=== PATIENT | male | born 1940 | race Caucasian/White ===

== ENCOUNTER 2025-06-16 12:15 | Emergency (ER) | payer OTHER ==
[~2025-06-16] VITALS: Ht 188 cm; Wt 90.2 kg
--- NOTE | 2025-06-16 12:37 | ED.PDOC ---
GI ASSESSMENT HPI Comments This is a 85 year old male presenting to the ED with chief complaint of abdominal pain. Patient reports that he has been experiencing 6/10 periumbilical abdominal burning for the past 3 weeks. Patient relays that his pain is constant and he has been experiencing associated headache and constipation, but is managed by laxative use. Patient states he visited [facility] 2 days ago where blood work and urine tests were performed, all coming back normal. Patient notes he was advised if his symptoms continued, to come into the ED for abdominal CT, which is what he is here for today. Patient denies any nausea, vomiting, diarrhea, fever, chills, hematemesis, or melena. Chief Complaint: Abdominal Pain Time Seen by MD: 12:35 Primary Care Provider: AMADOR Bah Notes: Nurses Notes, Medications, Allergies Allergies: Coded Allergies: NO KNOWN ALLERGIES (Unverified , 08/10/18) Home Meds Active Scripts Ciprofloxacin Hcl (Cipro) 500 Mg Tab, 1 TAB PO BID for 10 Days, #20 TAB Prov:FLORA RECINOS MD 06/16/25 Omeprazole Magnesium (Omeprazole) 20 Mg Tab, 20 MG PO DAILY, #30 TAB Prov:FLORA RECINOS MD 06/16/25 Dicyclomine Hcl (BENTYL CAPSULE) 10 Mg Cp, 2 CAP PO QID PRN, #30 CAP 11 Refills prn abdominal pain Prov:FLORA RECINOS MD 06/16/25 Discontinued Scripts Cephalexin Monohydrate (Cephalexin) 500 Mg Cap, 1 CAP PO QID for 10 Days, #40 CAP Prov:FLORA RECINOS MD 06/16/25 Information Source: Patient, Spouse Mode of Arrival: Ambulatory Timing: Weeks Duration: Since onset Prehospital treatment: None Quality: Burning Vomitus: None Stool: Impaction Severity: Moderate Recent: None Recent Hx of: None Pain Location: Periumbilical Modifying Factors: Nothing Associated sign and symptoms: Abdominal Pain Past Medical History Past Medical History (Other): Chronic back pain Surgical History: Denies all surgeries Family History Family History: Reviewed,noncontributory to illness Social History Smoker: Non-Smoker Alcohol: Denies ETOH Use Drugs: Denies Drug Use Lives In: Home Constitutional: denies: chills, diaphoresis, fatigue, fever, malaise, sweats, weakness, others EENTM: denies: blurred vision, double vision, ear bleeding, ear discharge, ear drainage, ear pain, ear ringing, eye pain, eye redness, hearing loss, mouth seymour n, mouth swelling, nasal discharge, nose bleeding, nose congestion, nose pain, photophobia, tearing, throat pain, throat swelling, voice changes, others Respiratory: denies: cough, hemoptysis, orthopnea, SOB at rest, shortness of breath, SOB with excertion, stridor, wheezing, others Cardiovascular: denies: chest pain, dizzy spells, diaphoresis, Dyspnea on exertion, edema, irregular heart beat, left arm pain, lightheadedness, palpitations, PND, syncope, others Gastrointestinal: reports: abdominal pain, constipated; denies: abdomen distended, blood streaked bowels, diarrhea, dysphagia, difficulty swallowing, hematemesis, melena, nausea, poor appetite, poor fluid intake, rectal bleeding, rectal pain, vomiting, others Genitourinary: denies: burning, dysuria, flank pain, frequency, hematuria, incontinence, penile discharge, penile sore, pain, testicle pain, testicle swelling, urgency, others Neurological: denies: dizziness, fainting, headache, left sided numbness, left sided weakness, numbness, paresthesia, pre-existing deficit, right sided numbness, right sided weakness, seizure, speech problems, tingling, tremors, weakness, others Musculoskeletal: denies: back pain, gout, joint pain, joint swelling, muscle pain, muscle stiffness, neck pain, others Integumetry: denies: bruises, change in color, change in hair/nails, dryness, laceration, lesions, lumps, rash, wounds, others Allergic/Immunocompromised: denies: Difficulty Healing, Frequent Infections, Hives, Itching, others Hematologic/Lymphatic: denies: anemia, blood clots, easy bleeding, easy bruising, swollen glands, others Endocrine: denies: excessive hunger, excessive sweating, excessive thirst, excessive urination, flushing, intolerance to cold, intolerance to heat, unexplained weight gain, unexplained weight loss, others Psychiatric: denies: anxiety, bipolar disorder, depression, hopeless, panic disorder, schizophrenia, sleepless, suicidal, others All Other Systems: Reviewed and Negative Physical Exam General Appearance: No Apparent Distress HEENT: Other (Pupils and face symmetric. Moist mucous membranes.) Neck: Full Range of Motion, Normal Inspection Respiratory: Lungs Clear, No Accessory Muscle Use, No Respiratory Distress, Normal Breath Sounds Cardiovascular: No Edema, No JVD, Regular Rate/Rhythm Breast Exam: Deferred Gastrointestinal: Soft, Tenderness (Supraumbilical tenderness to deep palpation. Nontender to percussion. No rebound or guarding.) Genitalia: Deferred Pelvic: Deferred Rectal: Deferred Extremities: Normal inspection, Normal range of motion, Non-tender, No pedal edema Neurologic: Alert (Oriented x4), Normal Affect, Normal Mood, Other (Ambulatory) Cerebellar Function: NOT DONE Reflexes: NOT DONE Skin: Dry, Normal Color, Warm Lymphatic: NOT DONE Was a procedure done? Was a procedure done?: No GI differential Dx Differential Diagnosis: Constipation, Diverticular disease, Gastritis/PUD, Gastroenteritis, Inflammatory BD, Ischemic Bowel, UTI, Dehydration, Electrolyte Imbalance, Bacterial, Viral, Impaction, Stress Ulcer X-Ray, Labs, Meds, VS Vital Signs Date Time Temp Pulse Resp B/P (MAP) Pulse Ox O2 Delivery O2 Flow Rate FiO2 06/16/25 15:42 Room Air* 0 21 06/16/25 15:41 97.7 90 18 161/104 (123) 95 97.7 06/16/25 15:34 90 18 161/104 06/16/25 12:16 98.7 99 18 157/91 96 98.7 Lab Test 06/16/25 14:59 06/16/25 13:47 06/16/25 12:50 06/16/25 12:33 Range/Units Lactic Acid Level 1.1 2.1 *H 0.4-2.0 mmol/L Troponin I High Sensitivity 10 14 </=54 ng/L White Blood Count 8.3 4.4-10.8 10^3/uL Red Blood Count 4.98 4.5-5.90 10^6/uL Hemoglobin 14.8 13.5-17.5 g/dL Hematocrit 44.0 41.0-53.0 % Mean Corpuscular Volume 88.2 80.0-100.0 fL Mean Corpuscular Hemoglobin 29.7 28.0-32.0 pg Mean Corpuscular Hemoglobin Concent 33.7 32.0-36.0 g/dL Red Cell Distribution Width 14.4 H 11.8-14.3 % Platelet Count 245 140-450 10^3/uL Mean Platelet Volume 8.6 6.9-10.8 fL Neutrophils (%) (Auto) 81.6 H 37.0-80.0 % Lymphocytes (%) (Auto) 9.1 L 10.0-50.0 % Monocytes (%) (Auto) 8.4 0.0-12.0 % Eosinophils (%) (Auto) 0.5 0.0-7.0 % Basophils (%) (Auto) 0.4 0.0-2.0 % Neutrophils # (Auto) 6.8 1.6-8.6 10 ^3/uL Lymphocytes # (Auto) 0.8 0.4-5.4 10 ^3/uL Monocytes # (Auto) 0.7 0-1.3 10 ^3/uL Eosinophils # (Auto) 0 0-0.8 10 ^3/uL Basophils # (Auto) 0 0-0.2 10 ^3/uL Nucleated Red Blood Cells 0.2 % Platelet Estimate Adequa Large Platelets Few Sodium Level 140 136-145 mmol/L Potassium Level 4.1 3.5-5.1 mmol/L Chloride Level 105 98-107 mmol/L Carbon Dioxide Level 24 20-31 mmol/L Anion Gap 11 5-15 Blood Urea Nitrogen 10 9-23 mg/dL Creatinine 1.03 0.700-1.30 mg/dL Glomerular Filtration Rate Calc 71 >90 mL/min BUN/Creatinine Ratio 9.7 L 10.0-20.0 Serum Glucose 108 H 74-106 mg/dL Calcium Level 9.6 8.7-10.4 mg/dL Total Bilirubin 0.7 0.2-1.0 mg/dL Aspartate Amino Transferase (AST) 26 13-40 U/L Alanine Aminotransferase (ALT) 15 7-40 U/L Alkaline Phosphatase 94 46-116 U/L Total Protein 7.9 5.7-8.2 g/dL Albumin 4.5 3.2-4.8 g/dL Lipase 30 12-53 U/L Urine Color Yellow Yellow Urine Clarity Clear Clear Urine pH 6.0 5.0-9.0 Urine Specific Gerber 1.017 1.001-1.035 Urine Protein Trace H Negative Urine Ketones Negative Negative Urine Blood Negative Negative /uL Urine Nitrite Negative Negative Urine Bilirubin Negative Negative Urine Urobilinogen Normal Negative mg/dL Urine Leukocyte Esterase 1+ Negative /uL Urine RBC 1 0 - 3 /hpf Urine Microscopic WBC 6 H 0-3 /HPF Urine Squamous Epithelial Cells Few <5 /hpf Urine Calcium Oxalate Crystals Few None Seen Urine Amorphous Crystals Few None Seen /hpf Urine Bacteria Few H None Seen /hpf Urine Hyaline Casts Few 0 - 2 /lpf Urine Mucus Few None Seen Urine Glucose Normal Normal mg/dL Current Medications Medications (Trade) Dose Ordered Sig/Jeremías Route Start Time Stop Time Status Last Admin Morphine Sulfate 4 mg ONCE ONCE IV 06/16/25 12:45 06/16/25 12:46 DC 06/16/25 15:34 Ondansetron HCl (Zofran) 4 mg ONCE ONCE IV 06/16/25 12:45 06/16/25 12:46 DC 06/16/25 15:34 Pantoprazole Sodium (Protonix) 40 mg ONCE ONCE IV 06/16/25 12:45 06/16/25 12:46 DC 06/16/25 15:34 Sodium Chloride 1,000 ml @ 1,000 mls/hr Q1H ONCE IV 06/16/25 12:45 06/16/25 13:44 DC 06/16/25 15:34 Ceftriaxone Sodium 50 ml @ 100 mls/hr ONCE ONCE IV 06/16/25 15:00 06/16/25 15:29 DC 06/16/25 15:35 PROCEDURE(s): ABPL - CT AB PEL WO CON-NO ORAL OR IV REASON: mid abdominal pain ORDER NUMBER(s): [id number], ACCESSION NUMBER(s): [id number] Exam: CT CT AB PEL WO CON-NO ORAL OR IV History: mid abdominal pain Comparison Study: None TECHNIQUE: Multidetector CT of the abdomen AND PELVIS without IV contrast. Axial, coronal and sagittal multiplanar reformats were obtained from the axial data set by the technologist. Radiation Dose Information: CT Dose: CTDI volume is 20.24 mGy. Dose-length product is 1181.24 mGy*cm FINDINGS: Bibasilar atelectasis/scarring. Partially visualized heart is unremarkable. Liver, spleen, gallbladder, pancreas and adrenal glands arae unremarkable. Ydjo-hq-fnqtmwra nonspecific bilateral perinephric fat stranding. Slight inferior position of the right kidney with the perinephric fat stranding extending into a large fat containing inguinal hernia. Bilateral multiple parapelvic cysts, largest on the right measuring up to 3.8 cm and largest on the left measuring up to 5.2 cm. Punctate nonobstructing left renal calculi versus vascular calcification. Bilateral ureters and urinary bladder unremarkable. Prostate measures 3.4 x 4.9 x 4.3 cm with foci of calcification. Stomach is unremarkable. Small bowel loops unremarkable. Appendix is normal in size with a 2 mm appendicolith distally. Moderate amount of fecal material within the colon. Descending colon and Sigmoid diverticulosis mild rectal wall thickening. No CT evidence of diverticulitis. No evidence of intraperitoneal free air or free fluid. No evidence of aortic aneurysm. Mild atherosclerotic calcification of the aorta and bilateral iliacs. No significant lymphadenopathy. Large fat containing right inguinal hernia the mild to moderate right-sided perinephric fat stranding extending into the inguinal hernia and slight inferior position of the right kidney of the right lower abdomen. Sclerotic focus over the right iliac bone and left medial pubic bone which represent small bone islands blastic lesions not excluded IMPRESSION: Large fat containing right inguinal hernia the mild to moderate right-sided perinephric fat stranding extending into the inguinal hernia and slight inferior position of the right kidney of the right lower abdomen. Colonic diverticulosis without diverticulitis. Moderate amount of fecal material within the colon. 2 mm distal appendicoliths is noted within the appendix. Otherwise, the appendix is unremarkable. Multiple Dabq-qzmuwau-dbci-right bilateral renal parapelvic cysts. Punctate nonobstructing left renal calculi/vascular calcification. X-Ray, Labs, Meds, VS Comment 85-year-old male with a history of chronic back pain on Tina complaining of mid abdominal pain for the past 3 weeks, associated with a headache and constipation Vitals remarkable for BP 157/91 Exam remarkable for supraumbilical tenderness to palpation Rhythm strip independently interpreted by me: Sinus rhythm, rate 99, no ectopy. CT abdomen and pelvis IMPRESSION: Large fat containing right inguinal hernia the mild to moderate right-sided perinephric fat stranding extending into the inguinal hernia and slight inferior position of the right kidney of the right lower abdomen. Colonic diverticulosis without diverticulitis. Moderate amount of fecal material within the colon. 2 mm distal appendicoliths is noted within the appendix. Otherwise, the appendix is unremarkable. Multiple Pokg-rpbpjqx-uoxz-right bilateral renal parapelvic cysts. Punctate nonobstructing left renal calculi/vascular calcification. CBC and CMP unremarkable, 2 serial troponins negative, UA abnormal consistent with mild UTI Patient treated with the following in the ED: 1 L 0.9 normal saline IV bolus, morphine 4 mg IV, Zofran 4 mg IV, Protonix 40 mg IV, Rocephin 1 g IV On re-evaluation, patient states pain has improved. Vitals were stable. Discussed with Dr. Hernandez at [facility], who will arrange for the patient to have urgent follow-up with his primary physician and referral to General surgery for further evaluation of the inguinal hernia. Authorization [id number]. Patient will be discharged with a prescription for Keflex, Bentyl and omeprazole. Advised to return to ER for persistent or worsening symptoms. Time of 1ST Reevaluation: 13:34 Reevaluation 1ST: Unchanged Patient Education/Counseling: Diagnosis, Treatment Family Education/Counseling: Diagnosis, Treatment SEPSIS Sepsis Screen Date sepsis recognized/suspect: Jun 16, 2025 Time Sepsis recognized/suspect: 1215 Recent Procedure: No On Antibiotic Therapy: No Respiratory Rate >20: No Heart Rate >90: Yes Temp<36 C (96.8 F) or >38.3 C: No SBP <90 or MAP <65 mmHG: No New Acute Mental Status Change: No Is the patient on CPAP, BIPAP,: No SEPSIS EXCLUSION NOTE: Sepsis Exclusion Note: Patient presents with SIRS criteria, but the SIRS response is attributed to [pain ], not sepsis. Sepsis bundle is not initiated at this time, due to this reason. Further management will focus on the treatment of the above condition (s). Physician Orders Ct Ab Pel Wo Con-No Oral Or Iv (06/16/25 12:33) Electrocardigram (06/16/25 12:33) Vital Signs Date Time Temp Pulse Resp B/P (MAP) Pulse Ox O2 Delivery O2 Flow Rate FiO2 06/16/25 15:42 Room Air* 0 21 06/16/25 15:41 97.7 90 18 161/104 (123) 95 97.7 06/16/25 15:34 90 18 161/104 06/16/25 12:16 98.7 99 18 157/91 96 98.7 Laboratory Tests Test 06/16/25 12:50 06/16/25 14:59 Lactic Acid Level 2.1 mmol/L (0.4-2.0) *H 1.1 mmol/L (0.4-2.0) White Blood Count 8.3 10^3/uL (4.4-10.8) Medications Medications Dose Ordered Sig/Jeremías Route Start Time Stop Time Status Last Admin Dose Admin Ceftriaxone Sodium 50 ml @ 100 mls/hr ONCE ONCE IV 06/16/25 15:00 06/16/25 15:29 DC 06/16/25 15:35 Morphine Sulfate 4 mg ONCE ONCE IV 06/16/25 12:45 06/16/25 12:46 DC 06/16/25 15:34 Ondansetron HCl 4 mg ONCE ONCE IV 06/16/25 12:45 06/16/25 12:46 DC 06/16/25 15:34 Pantoprazole Sodium 40 mg ONCE ONCE IV 06/16/25 12:45 06/16/25 12:46 DC 06/16/25 15:34 Sodium Chloride 1,000 ml @ 1,000 mls/hr Q1H ONCE IV 06/16/25 12:45 06/16/25 13:44 DC 06/16/25 15:34 Departure 1 Departure Time of Disposition: 16:00 Impression: Primary Impression: Urinary tract infection Qualified Codes: N39.0 - Urinary tract infection, site not specified Additional Impression: Inguinal hernia of right side without obstruction or gangrene Disposition: HOME / SELF CARE / HOMELESS Condition: Stable Additional Instructions: Your blood tests were unremarkable. Your urine test showed you have a mild urinary tract infection. Your CT scan showed you have an inguinal hernia, which may be contributing to your pain. I have enclosed the report below to show to your primary doctor when you follow-up. I have prescribed pain medication, acid reducers, and antibiotics to treat your urinary tract infection. [facility] will arrange for you to follow-up urgently with your primary doctor and a general surgeon for further evaluation of your abdominal pain and inguinal hernia. Return to ER sooner for persistent or worsening symptoms. [facility] [id number] [place] [id number] Ph: [phone] DIAGNOSTIC IMAGING Diagnostic Imaging Report : [id number] Signed PATIENT: JAMIL RODRIGUEZ ACCT: [id number] UNIT: [id number] : 1940 LOC: ER ROOM / BED: / AGE / SEX: 85 / M ADM STATUS: REG ER SERVICE 1233 ORDERING PHYSICIAN: FLORA RECINOS MD PROCEDURE(s): ABPL - CT AB PEL WO CON-NO ORAL OR IV REASON: mid abdominal pain ORDER NUMBER(s): [id number], ACCESSION NUMBER(s): [id number] Exam: CT CT AB PEL WO CON-NO ORAL OR IV History: mid abdominal pain Comparison Study: None TECHNIQUE: Multidetector CT of the abdomen AND PELVIS without IV contrast. Axial, coronal and sagittal multiplanar reformats were obtained from the axial data set by the technologist. Radiation Dose Information: CT Dose: CTDI volume is 20.24 mGy. Dose-length product is 1181.24 mGy*cm FINDINGS: Bibasilar atelectasis/scarring. Partially visualized heart is unremarkable. Liver, spleen, gallbladder, pancreas and adrenal glands arae unremarkable. Bpub-jx-cdjfstcn nonspecific bilateral perinephric fat stranding. Slight inferior position of the right kidney with the perinephric fat stranding exte nding into a large fat containing inguinal hernia. Bilateral multiple parapelvic cysts, largest on the right measuring up to 3.8 cm and largest on the left measuring up to 5.2 cm. Punctate nonobstructing left renal calculi versus vascular calcification. Bilateral ureters and urinary bladder unremarkable. Prostate measures 3.4 x 4.9 x 4.3 cm with foci of calcification. Stomach is unremarkable. Small bowel loops unremarkable. Appendix is normal in size with a 2 mm appendicolith distally. Moderate amount of fecal material within the colon. Descending colon and Sigmoid diverticulosis mild rectal wall thickening. No CT evidence of diverticulitis. No evidence of intraperitoneal free air or free fluid. No evidence of aortic aneurysm. Mild atherosclerotic calcification of the aorta and bilateral iliacs. No significant lymphadenopathy. Large fat containing right inguinal hernia the mild to moderate right-sided perinephric fat stranding extending into the inguinal hernia and slight inferior position of the right kidney of the right lower abdomen. Sclerotic focus over the right iliac bone and left medial pubic bone which represent small bone islands blastic lesions not excluded IMPRESSION: Large fat containing right inguinal hernia the mild to moderate right-sided perinephric fat stranding extending into the inguinal hernia and slight inferior position of the right kidney of the right lower abdomen. Colonic diverticulosis without diverticulitis. Moderate amount of fecal material within the colon. 2 mm distal appendicoliths is noted within the appendix. Otherwise, the appendix is unremarkable. Multiple Nsue-aybrxwi-ddcd-right bilateral renal parapelvic cysts. Punctate nonobstructing left renal calculi/vascular calcification. e-Prescriptions Ciprofloxacin Hcl (Cipro) 500 Mg Tab 1 TAB PO BID for 10 Days, #20 TAB Prov: FLORA RECINOS MD 06/16/25 Omeprazole Magnesium (Omeprazole) 20 Mg Tab 20 MG PO DAILY, #30 TAB Prov: FLORA RECINOS MD 06/16/25 Dicyclomine Hcl (BENTYL CAPSULE) 10 Mg Cp 2 CAP PO QID PRN, #30 CAP 11 Refills prn abdominal pain Prov: FLORA RECINOS MD 06/16/25 Discharged With: Spouse Critical Care Note Critical Care Time?: No Stability Stability form required: No Heart Score Heart Score: Heart Score Response (Comments) Value History N/A 0 EKG N/A 0 Age N/A 0 Risk Factors N/A 0 Troponin N/A 0 Total 0 I personally scribed for FLORA RECINOS MD ([email or web address]) on 06/16/25 at 12:37. Electronically submitted by Domo Coto ([email or web address]). FLORA RECINOS MD Jun 16, 2025 12:37
[2025-06-16 13:08] LABS: Hematocrit 44.0 % (41.0-53.0); Hemoglobin 14.8 g/dL (13.5-17.5); Mean Corpuscular Hemoglobin 29.7 pg (28.0-32.0); Mean Corpuscular Volume 88.2 fL (80.0-100.0); Nucleated Red Blood Cells % 0.2 %
[2025-06-16 13:22] LABS: Alanine Aminotransferase 15 U/L (7-40); Albumin 4.5 g/dL (3.2-4.8); Alkaline Phosphatase 94 U/L (46-116); Anion Gap 11 (5-15); BUN/Creatinine Ratio 9.7 (10.0-20.0); Bilirubin, Total 0.7 mg/dL (0.2-1.0); Blood Urea Nitrogen 10 mg/dL (9-23); Calcium 9.6 mg/dL (8.7-10.4); Carbon Dioxide 24 mmol/L (20-31); Chloride 105 mmol/L (98-107); Potassium 4.1 mmol/L (3.5-5.1); Sodium 140 mmol/L (136-145); Total Protein 7.9 g/dL (5.7-8.2)
[2025-06-16 13:29] LABS: Glucose 108 mg/dL (74-106)
[2025-06-16 13:52] LABS: Lactic Acid w/Reflex 2.1 mmol/L (0.4-2.0)
[2025-06-16 14:28] LABS: Urine Amorphous Crystal FEW /hpf (None Seen); Urine Protein, UAD TRACE (Negative)
[2025-06-16 14:36] LABS: Lipase 30 U/L (12-53)
--- NOTE | 2025-06-16 15:03 | DVH ---
Exam: CT CT AB PEL WO CON-NO ORAL OR IV History: mid abdominal pain Comparison Study: None TECHNIQUE: Multidetector CT of the abdomen AND PELVIS without IV contrast. Axial, coronal and sagitta l multiplanar reformats were obtained from the axial data set by the technologist. Radiation Dose Information: CT Dose: CTDI volume is 20.24 mGy. Dose-length product is 1181.24 mGy*cm FINDINGS: Bibasilar atelectasis/scarring. Partially visualized heart is unremarkable. Liver, spleen, gallbladder, pancreas and adrenal glands arae unremarkable. Gkqu-cr-jguxyxbx nonspecific bilateral perinephric fat stranding. Slight inferior position of the rig ht kidney with the perinephric fat stranding extending into a large fat containing inguinal hernia. B ilateral multiple parapelvic cysts, largest on the right measuring up to 3.8 cm and largest on the le ft measuring up to 5.2 cm. Punctate nonobstructing left renal calculi versus vascular calcification. Bilateral ureters and urinary bladder unremarkable. Prostate measures 3.4 x 4.9 x 4.3 cm with foci of calcification. Stomach is unremarkable. Small bowel loops unremarkable. Appendix is normal in size with a 2 mm appe ndicolith distally. Moderate amount of fecal material within the colon. Descending colon and Sigmoid diverticulosis mild rectal wall thickening. No CT evidence of diverticulitis. No evidence of intraperitoneal free air or free fluid. No evidence of aortic aneurysm. Mild atherosclerotic calcification of the aorta and bilateral iliacs . No significant lymphadenopathy. Large fat containing right inguinal hernia the mild to moderate right-sided perinephric fat stranding extending into the inguinal hernia and slight inferior position of the right kidney of the right low er abdomen. Sclerotic focus over the right iliac bone and left medial pubic bone which represent smal l bone islands blastic lesions not excluded IMPRESSION: Large fat containing right inguinal hernia the mild to moderate right-sided perinephric fat stranding extending into the inguinal hernia and slight inferior position of the right kidney of the right low er abdomen. Colonic diverticulosis without diverticulitis. Moderate amount of fecal material within the colon. 2 mm distal appendicoliths is noted within the appendix. Otherwise, the appendix is unremarkable. Multiple Xljw-nrlohck-eerx-right bilateral renal parapelvic cysts. Punctate nonobstructing left renal calculi/vascular calcification.
[2025-06-16] MEDS: ONDANSETRON HCL 4 MG/2 ML VIAL IV ONE (15:34)
[2025-06-16] MEDS: MORPHINE SULFATE 4 MG/ML SYR/VIAL IV ONE (15:34)
[2025-06-16] MEDS: SODIUM CHLORIDE 0.9% 1,000 ML IV ONE (15:34)
[2025-06-16] MEDS: PANTOPRAZOLE 40 MG/10 ML VIAL INJ IV ONE (15:34)
[2025-06-16 15:41] VITALS: BP 161/104; PULSE 90; RESP 18; TEMP 97.7; O2SAT 95
[2025-06-16] MEDS ORDERED: DICY10CA PO (16:06)
[2025-06-16] MEDS ORDERED: OMEP-434 PO (16:06)
[2025-06-16] MEDS ORDERED: CEPH500C PO (16:06)
[2025-06-16] MEDS ORDERED: CIPR-173 PO (16:24)
== END 2025-06-16 16:40 | disposition home or self-care (01) ==
LOC: ER 12:15
DX: N39.0 Urinary tract infection, site not specified (principal); K40.90 Unilateral inguinal hernia, without obstruction or gangrene, not specified as recurrent
CPT/HCPCS: 36415; 74176; 80053; 81001; 83605; 83690; 84484; 85025; 87086; 96365; 96375; 99285; J0696; J2270; J2405; J2470